=== PATIENT | female | born 1945 | race Caucasian/White ===

== ENCOUNTER 2017-07-15 08:17 | Emergency (ER) | payer OTHER, MEDICAID ==
[~2017-07-15] VITALS: Ht 157.5 cm; Wt 70.8 kg
[2017-07-15 08:20] VITALS: Ht 157.5 cm; Wt 70.8 kg
[2017-07-15 09:30] VITALS: BP 138/79
== END 2017-07-15 09:30 | disposition home or self-care (01) ==
LOC: ED 08:17
DX: R21 Rash and other nonspecific skin eruption (principal); I10 Essential (primary) hypertension

== ENCOUNTER 2018-06-25 16:18 | Emergency (ER) | payer OTHER, MEDICAID ==
[~2018-06-25] VITALS: Ht 157.5 cm; Wt 68.0 kg
[2018-06-25 16:24] VITALS: Ht 157.5 cm; Wt 68.0 kg
[2018-06-25 20:36] VITALS: BP 119/57
== END 2018-06-25 20:36 | disposition home or self-care (01) ==
LOC: ED 16:18
DX: S76.912A Strain of unspecified muscles, fascia and tendons at thigh level, left thigh, initial encounter (principal); M25.552 Pain in left hip; I10 Essential (primary) hypertension; E78.00 Pure hypercholesterolemia, unspecified; W01.0XXA Fall on same level from slipping, tripping and stumbling without subsequent striking against object, initial encounter; Y93.89 Activity, other specified; Y92.89 Other specified places as the place of occurrence of the external cause; Y99.8 Other external cause status

== ENCOUNTER 2019-03-27 10:26 | Emergency (ER) | payer OTHER, MEDICAID ==
[~2019-03-27] VITALS: Ht 162.6 cm; Wt 68.9 kg
[2019-03-27 10:36] VITALS: Ht 162.6 cm; Wt 68.9 kg
[2019-03-27 11:32] LABS: CALCIUM 8.8 mg/dL (8.5-10.1); CARBON DIOXIDE 28.8 mmol/L (21-32); CHLORIDE SERUM 104 mmol/L (98-107); CREATININE SERUM 0.6 mg/dL (0.6-1.0); GLUCOSE SERUM 101 mg/dL (74-106); POTASSIUM SERUM 3.9 mmol/L (3.5-5.1); SODIUM SERUM 140 mmol/L (136-145)
[2019-03-27 11:36] LABS: BASOPHIL % 0.4 % (0-2); PLATELET COUNT 230 x10^3mcL (130-400); RED CELL DISTRIBUTION WIDTH 17.9 % (11.5-14.5)
[2019-03-27 12:37] LABS: microscopic required? YES; urine erythrocyte 1+ (NEGATIVE)
[2019-03-27 13:05] VITALS: BP 129/65
== END 2019-03-27 13:05 | disposition home or self-care (01) ==
LOC: ED 10:26
PROVIDERS: Emergency Medicine
DX: N39.0 Urinary tract infection, site not specified (principal); I10 Essential (primary) hypertension; E78.00 Pure hypercholesterolemia, unspecified; Z98.890 Other specified postprocedural states
CPT/HCPCS: 36415; J1885